=== PATIENT | male | born 1995 | race Caucasian/White ===

== ENCOUNTER 2017-09-28 11:47 | Emergency (ER) | payer OTHER ==
[2017-09-28] MEDS ORDERED: Naproxen 500 MG TAB ONE (12:09)
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
== END 2017-09-28 12:57 | disposition home or self-care (01) ==
LOC: MADERS 11:47
DX: S09.90XA Unspecified injury of head, initial encounter (principal); V43.52XA Car driver injured in collision with other type car in traffic accident, initial encounter; W22.11XA Striking against or struck by driver side automobile airbag, initial encounter
CPT/HCPCS: 70450; 72125